=== PATIENT | female | born 1990 | race Caucasian/White ===

== ENCOUNTER 2017-08-11 23:53 | Emergency (ER) | payer MEDICAID ==
[~2017-08-11] VITALS: Ht 149.9 cm; Wt 49.9 kg
[2017-08-11 23:53] VITALS: BP 106/70
== END 2017-08-12 00:58 | disposition home or self-care (01) ==
LOC: ER 23:53
DX: Z00.00 Encounter for general adult medical examination without abnormal findings (principal)
CPT/HCPCS: 99283; A4606; Z7610